=== PATIENT | female | born 1985 | race Caucasian/White ===

== ENCOUNTER 2019-01-19 09:12 | Emergency (ER) | payer MEDICARE, MEDICAID ==
[~2019-01-19] VITALS: Ht 162.6 cm; Wt 102.0 kg
[2019-01-19] MEDS ORDERED: KETOROLAC 60MG/2ML VIAL IM STA (10:18)
[2019-01-19] MEDS ORDERED: METHYLPREDNISOLONE SOD SUCC 125 MG/2 ML VIAL IM STA (10:18)
[2019-01-19 10:25] VITALS: BP 124/62
== END 2019-01-19 11:50 | disposition home or self-care (01) ==
LOC: ER 09:43
DX: G56.03 Carpal tunnel syndrome, bilateral upper limbs (principal); F43.10 Post-traumatic stress disorder, unspecified
CPT/HCPCS: 96372; 99283; J1885; J2930

== ENCOUNTER 2019-06-11 17:11 | Emergency (ER) | payer MEDICARE, MEDICAID ==
[~2019-06-11] VITALS: Ht 172.7 cm; Wt 90.0 kg
[2019-06-11] MEDS ORDERED: KETOROLAC 30MG/ML VIAL IM ONE (18:30)
[2019-06-11 19:49] VITALS: BP 123/64
== END 2019-06-11 19:51 | disposition home or self-care (01) ==
LOC: ER 17:11
DX: M25.562 Pain in left knee (principal)
CPT/HCPCS: 73562; 96372; 99283; J1885; L1830

== ENCOUNTER 2019-12-06 21:36 | Emergency (ER) | payer BC, MEDICAID ==
[~2019-12-06] VITALS: Ht 162.6 cm; Wt 88.8 kg
[2019-12-07] MEDS ORDERED: MORPHINE SULFATE 4 MG/ML CPJ (NOT FOR IM USE) IV STA (00:13)
[2019-12-07] MEDS ORDERED: SODIUM CHLORIDE 0.9% 1,000 ML IV ONE (00:13)
[2019-12-07] MEDS ORDERED: FAMOTIDINE 20MG/2ML VIAL IV STA (00:13)
[2019-12-07] MEDS ORDERED: ONDANSETRON HCL 4MG/2ML INJ IV STA (00:13)
[2019-12-07] MEDS ORDERED: DIATR MEGLU/DIATRIZOATE SOLN 30ML ONE (00:53)
[2019-12-07] MEDS ORDERED: IOHEXOL-300 100 ML BOTTLE ONE (00:53)
[2019-12-07 01:47] LABS: BASOPHILS % 0.5 % (0.0-2.0); HEMATOCRIT. 38.2 % (36.0-48.0); HEMOGLOBIN. 12.6 g/dL (12.0-16.0); LYMPHOCYTES % 36.3 % (20.0-50.0); MEAN CORPUSCULAR HEMOGLOBIN 26.5 pg (28.0-32.0); MEAN CORPUSCULAR VOLUME 80.2 fL (81.0-99.0); MEAN PLATELET VOLUME 7.4 fl (7.4-10.4); MONOCYTES % 8.9 % (2.0-8.0); NEUTROPHILS % 53.3 % (40.0-76.0); PLATELET 368 x1000/uL (130-400); RED BLOOD CELL COUNT 4.76 mill/uL (4.2-5.4); RED CELL DISTRIBUTION WIDTH 16.8 % (11.6-14.6)
[2019-12-07 01:53] LABS: CHLORIDE 111 mEq/L (98-107)
[2019-12-07] MEDS ORDERED: MORPHINE SULFATE 4 MG/ML CPJ (NOT FOR IM USE) IV ONE (05:15)
[2019-12-07 05:26] VITALS: BP 107/59
== END 2019-12-07 05:36 | disposition home or self-care (01) ==
LOC: ER 21:36
DX: R10.9 Unspecified abdominal pain (principal); R11.2 Nausea with vomiting, unspecified
CPT/HCPCS: 36415; 74177; 80053; 83690; 85025; 96361; 96374; 96375; 96376; 99285; J2270; J2405; J3490; J7030; Q9963; Q9967